=== PATIENT | male | born 1985 | race African-American/Black ===

== ENCOUNTER 2022-06-19 14:17 | Emergency (ER) | payer SELFPAY ==
[~2022-06-19] VITALS: Ht 180.3 cm; Wt 93.0 kg
[2022-06-19 14:36] VITALS: BP 129/92
[2022-06-19] MEDS ORDERED: AMOX1TAB16 MT (14:58)
[2022-06-19] MEDS ORDERED: IBUP-2029 MT (14:58)
[2022-06-19] MEDS ORDERED: TETANUS, DIPHTHERIA, PERTUSSIS VAC/PF 0.5ML (>10YR OLD) IM ONE ×2 (15:00→17:00)
[2022-06-19] MEDS ORDERED: AMOXICILLIN/POTASSIUM CLAVULANATE 875/125MG TAB PO ONE (15:00)
[2022-06-19] MEDS ORDERED: AMOXICILLIN/POTASSIUM CLAVULANATE 875/125MG TAB PO NR (15:00)
[2022-06-19] MEDS ORDERED: LIDOCAINE HCL 1% 20ML VIAL (Pyxis) INJ INFIL NR (15:15)
[2022-06-19] MEDS ORDERED: LIDOCAINE HCL 1% 20ML VIAL (Pyxis) INJ INFIL ONE (15:15)
== END 2022-06-19 17:24 | disposition home or self-care (01) ==
LOC: EDBD 14:17 → ER 14:17
DX: S61.212A Laceration without foreign body of right middle finger without damage to nail, initial encounter (principal); W54.0XXA Bitten by dog, initial encounter; Y93.89 Activity, other specified; Y92.89 Other specified places as the place of occurrence of the external cause; Y99.8 Other external cause status
CPT/HCPCS: 12002; 90471; 90715; 99283; Z7610; J3490